=== PATIENT | male | born 1995 | race Two or more races ===

== ENCOUNTER 2021-05-06 14:30 | Emergency (ER) | payer OTHER ==
[~2021-05-06] VITALS: Ht 172.7 cm; Wt 82.5 kg
--- NOTE | 2021-05-06 15:25 | REP ---
INDICATION: unknown injury/blackout s/p drinking. COMPARISON: None. TECHNIQUE: Helical scanning is acquired. 5 mm axial images were reformatted. Coronal MPR images were generated. FINDINGS: Bone window settings demonstrate an intact bony calvarium. There is no evidence of skull fracture or incidental bony calvarial lesion. The visualized paranasal sinuses appear clear. No intraorbital abnormality is seen. On soft tissue window setting images; the lateral, third, and fourth ventricles are normal in size and position. Miner-white differentiation pattern is normal above and below the tentorium. There are is no evidence of intracranial hemorrhage. No mass, edema, infarction, or midline shift is seen. No extra-axial fluid collection is appreciated. IMPRESSION: Negative noncontrast head CT. <Electronically signed by Ori Reveles > 05/06/21 [id number]
--- NOTE | 2021-05-06 15:27 | REP ---
INDICATION: unknown injury/blackout s/p drinking. COMPARISON: None. TECHNIQUE: Helical scanning is acquired and overlapping 2 mm high resolution axial images were generated and reviewed at bone and soft tissue window settings. Coronal and sagittal multiplanar re-formations images are generated. FINDINGS: There is no evidence of cervical spine element fracture. No skull base fracture is seen. Cervical vertebral body heights are preserved. Alignment is normal. Facet joints are normally aligned bilaterally at each cervical level on multiplanar re-formations images. There is no evidence of intraspinal or paraspinal hematoma. No extra vertebral abnormality is seen. There is a single focal calcification visible in the left thyroid. IMPRESSION: Negative CT study of the cervical spine without contrast. No fracture seen. <Electronically signed by Ori Reveles > 05/06/21 [id number]
--- NOTE | 2021-05-06 15:30 | REP ---
INDICATION: unknown injury/blackout s/p drinking. COMPARISON: NONE. TECHNIQUE: Helical scanning is acquired and 2 mm axial images re-formatted. Coronal and sagittal MPR images are generated and reviewed. FINDINGS: Digital preliminary snuff box finisher radiographs are unremarkable. No mandibular fracture is seen. Zygomatic arches are intact. Orbital margins are intact bilaterally. No nasal fracture is visible. Inferior maxillary spine is normal in appearance. The bony nasal septum bows somewhat to the left without a discernible beak. There are aerated minesh bullosa bilaterally, right larger than left. There is stenosis of the ostiomeatal complex particularly on the left although no occlusion is seen. There are mucosal thickening changes in the left maxillary sinus. The frontal sinuses are clear. Ethmoid air cells are clear with a mild mucosal thickening in 1 of the right ethmoid air cells. The sphenoid sinus is clear. Mastoid aeration is normal and symmetric. No intraorbital abnormality is seen. The deep facial soft tissues are unremarkable. IMPRESSION: Mild leftward deviation of the nasal septum. Minimal mucosal changes affecting the left maxillary, right ethmoid sinuses. Bilateral aerated minesh bullosa. Narrowing of the ostium and infundibulum of the left OMC. No traumatic abnormality noted. <Electronically signed by Ori Reveles > 05/06/21 [id number]
[2021-05-06] MEDS ORDERED: BACI500O21 TOP (16:10)
[2021-05-06 16:24] VITALS: BP 131/85
== END 2021-05-06 16:34 | disposition home or self-care (01) ==
LOC: M ED 14:30
DX: S00.83XA Contusion of other part of head, initial encounter (principal); S00.91XA Abrasion of unspecified part of head, initial encounter; X58.XXXA Exposure to other specified factors, initial encounter; Y92.139 Unspecified place military base as the place of occurrence of the external cause; Y93.9 Activity, unspecified; Y99.9 Unspecified external cause status; J34.2 Deviated nasal septum; F10.10 Alcohol abuse, uncomplicated